=== PATIENT | female | born 1965 | race Caucasian/White ===

== ENCOUNTER → 2018-06-29 | Outpatient (REF) | payer OTHER ==
[2018-06-29 16:50] LABS: RHEUMATOID FACTOR QUANT < 10.0 IU/ML (<15.0); URIC ACID 3.4 MG/DL (2.6-6.0)
== END ==
LOC: M SFHCPLAZ 13:38
PROVIDERS: ATTEND Internal Medicine Rheumatology
DX: M19.90 Unspecified osteoarthritis, unspecified site (principal)

== ENCOUNTER → 2018-06-29 | Outpatient (CLI) | payer OTHER ==
--- NOTE | 2018-06-30 02:19 | REP ---
Clinical: Primary osteoarthritis. Technique AP, lateral, bilateral oblique views of the right and left hand. Impression: Bilateral advanced osteoarthritic degenerative changes through the hand and wrist noted. Findings include subchondral sclerosis/heterogeneity, joint space narrowing, minimal chondrocalcinosis, and marginal osteophytosis primarily involving the interphalangeal joints as well as early gull-wing deformities involving the right distal interphalangeal joints. The wrists demonstrate subchondral sclerosis/heterogeneity and carpometacarpal joint space narrowing primarily involving the first and second carpometacarpal joints as well as increase sclerosis along the radial surface and decreased radiocarpal joint space. No acute fracture dislocation. Impression: Early advanced osteoarthritic degenerative changes. Electronically Signed by Justin Shin MD 06/30/2018 02:11 A
== END ==
LOC: M LRY 13:47
PROVIDERS: ATTEND Internal Medicine Rheumatology
DX: M19.041 Primary osteoarthritis, right hand (principal); M19.042 Primary osteoarthritis, left hand